=== PATIENT | male | born 1985 | race Two or more races ===

== ENCOUNTER 2021-08-25 12:49 | Inpatient (IN) | payer OTHER ==
[2021-08-25] MEDS ORDERED: ASPIRIN 81 MG PO STA (13:02)
[2021-08-25] MEDS ORDERED: NITROGLYCERIN SL TABS 0.4 MG TAB SUBLINGUAL STA ×3 (13:02)
--- NOTE | 2021-08-25 13:06 | ED ---
General Adult HPI - General Chief complaint: Chest Pain Stated complaint: Chest Pain Time Seen by Provider: 08/25/21 12:56 Source: patient, EMS, RN notes reviewed Mode of arrival: EMS Limitations: no limitations - History of Present Illness Initial comments: Patient is a pleasant 36-year-old male presenting to the emergency department complaints of chest discomfort. Onset of symptoms was 3 or 4 days ago. Symptoms were somewhat worse today. Patient as pressure in his chest rated 6 or 7/10. This is slightly improving at this time. Patient does have some associated sweating and dyspnea. Patient was also mildly nauseated. No history of similar symptoms previously. No leg pain or leg swelling. Patient was doing light to moderate exertion with onset of discomfort today. 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 - Related Data Home Medications Medication Instructions Recorded Confirmed No Known Home Medications 08/25/21 08/25/21 Allergies Allergy/AdvReac Type Severity Reaction Status Date / Time No Known Allergies Allergy Verified 08/25/21 14:10 Review of Systems ROS Statement: Those systems with pertinent positive or pertinent negative responses have been documented in the HPI. ROS Other: All systems not noted in ROS Statement are negative. Constitutional: Denies: fever Eyes: Denies: eye pain ENT: Denies: ear pain Respiratory: Reports: as per HPI. Denies: cough Cardiovascular: Reports: as per HPI, chest pain Gastrointestinal: Reports: nausea. Denies: abdominal pain Genitourinary: Denies: dysuria Musculoskeletal: Denies: back pain Skin: Denies: rash Neurological: Denies: weakness Past Medical History Past Medical History: No Reported History History of Any Multi-Drug Resistant Organisms: None Reported Additional Past Surgical History / Comment(s): Aortic Valve replacement Past Psychological History: No Psychological Hx Reported Smoking Status: Never smoker Past Alcohol Use History: Occasional Past Drug Use History: Marijuana General Exam Limitations: no limitations General appearance: alert, in no apparent distress Head exam: Present: normocephalic Eye exam: Present: normal appearance Neck exam: Present: normal inspection Respiratory exam: Present: normal lung sounds bilaterally. Absent: chest wall tenderness Cardiovascular Exam: Present: regular rate, normal rhythm, systolic murmur (Patient states normal) Expanded Peripheral pulses: 2+: Radial (R), Radial (L), Posterior Tibialis (R), Posterior Tibialis (L), Dorsalis Pedis (R), Dorsalis Pedis (L) GI/Abdominal exam: Present: soft. Absent: tenderness Extremities exam: Present: normal inspection. Absent: pedal edema, calf tenderness Neurological exam: Present: alert Psychiatric exam: Present: normal affect, normal mood Skin exam: Present: normal color Course Vital Signs 08/25/21 08/25/21 12:50 13:35 Temperature 97.5 F L Pulse Rate 86 84 Respiratory 18 18 Rate Blood Pressure 136/113 132/80 O2 Sat by Pulse 99 97 Oximetry EKG Findings - EKG Comments: EKG Findings:: Normal sinus rhythm with a rate of 89. PA 172. QRS 88. QT 346. QTc 420. Normal axis. Normal QRS. No acute ST change. Medical Decision Making - Medical Decision Making Patient has typical symptoms with borderline elevated troponin. Patient did improve with second nitroglycerin. Patient is felt to be at high risk. Patient and family updated on results and plan. Case was discussed with Dr. kurtz, who will admit covering hospital call. Heparin will be started. - Lab Data Result diagrams: 08/25/21 13:16 08/25/21 13:16 Lab Results 08/25/21 08/25/21 08/25/21 Range/Units 13:16 13:16 13:16 WBC 12.7 H (3.8-10.6) k/uL RBC 5.40 (4.30-5.90) m/uL Hgb 16.4 (13.0-17.5) gm/dL Hct 46.4 (39.0-53.0) % MCV 85.8 (80.0-100.0) fL MCH 30.4 (25.0-35.0) pg MCHC 35.4 (31.0-37.0) g/dL RDW 13.4 (11.5-15.5) % Plt Count 184 (150-450) k/uL MPV 9.8 Neutrophils % 87 % Lymphocytes % 7 % Monocytes % 5 % Eosinophils % 0 % Basophils % 0 % Neutrophils # 11.0 H (1.3-7.7) k/uL Lymphocytes # 0.9 L (1.0-4.8) k/uL Monocytes # 0.6 (0-1.0) k/uL Eosinophils # 0.0 (0-0.7) k/uL Basophils # 0.0 (0-0.2) k/uL PT 10.4 (9.0-12.0) sec INR 1.0 (<1.2) APTT 19.9 L (22.0-30.0) sec D-Dimer 0.18 (<0.60) mg/L FEU Sodium 139 (137-145) mmol/L Potassium 4.0 (3.5-5.1) mmol/L Chloride 102 (98-107) mmol/L Carbon Dioxide 24 (22-30) mmol/L Anion Gap 13 mmol/L BUN 27 H (9-20) mg/dL Creatinine 1.24 (0.66-1.25) mg/dL Est GFR (CKD-EPI)AfAm 87 (>60 ml/min/1.73 sqM) Est GFR (CKD-EPI)NonAf 75 (>60 ml/min/1.73 sqM) Glucose 97 (74-99) mg/dL Calcium 10.8 H (8.4-10.2) mg/dL Magnesium 2.3 (1.6-2.3) mg/dL Total Bilirubin 1.2 (0.2-1.3) mg/dL AST 30 (17-59) U/L ALT 20 (4-49) U/L Alkaline Phosphatase 99 (38-126) U/L Troponin I (0.000-0.034) ng/mL Total Protein 8.4 H (6.3-8.2) g/dL Albumin 5.1 H (3.5-5.0) g/dL 08/25/21 Range/Units 13:16 WBC (3.8-10.6) k/uL RBC (4.30-5.90) m/uL Hgb (13.0-17.5) gm/dL Hct (39.0-53.0) % MCV (80.0-100.0) fL MCH (25.0-35.0) pg MCHC (31.0-37.0) g/dL RDW (11.5-15.5) % Plt Count (150-450) k/uL MPV Neutrophils % % Lymphocytes % % Monocytes % % Eosinophils % % Basophils % % Neutrophils # (1.3-7.7) k/uL Lymphocytes # (1.0-4.8) k/uL Monocytes # (0-1.0) k/uL Eosinophils # (0-0.7) k/uL Basophils # (0-0.2) k/uL PT (9.0-12.0) sec INR (<1.2) APTT (22.0-30.0) sec D-Dimer (<0.60) mg/L FEU Sodium (137-145) mmol/L Potassium (3.5-5.1) mmol/L Chloride (98-107) mmol/L Carbon Dioxide (22-30) mmol/L Anion Gap mmol/L BUN (9-20) mg/dL Creatinine (0.66-1.25) mg/dL Est GFR (CKD-EPI)AfAm (>60 ml/min/1.73 sqM) Est GFR (CKD-EPI)NonAf (>60 ml/min/1.73 sqM) Glucose (74-99) mg/dL Calcium (8.4-10.2) mg/dL Magnesium (1.6-2.3) mg/dL Total Bilirubin (0.2-1.3) mg/dL AST (17-59) U/L ALT (4-49) U/L Alkaline Phosphatase (38-126) U/L Troponin I 0.048 H* (0.000-0.034) ng/mL Total Protein (6.3-8.2) g/dL Albumin (3.5-5.0) g/dL - Radiology Data Radiology results: image reviewed (Chest x-ray shows no acute process.) Critical Care Time Critical Care Time: Yes Total Critical Care Time: 32 Disposition Clinical Impression: Unstable angina pectoris Disposition: ADMITTED IP TO THIS HOSP Is patient prescribed a controlled substance at d/c from ED?: No Referrals: None,Stated [Primary Care Provider] - 1-2 days Decision Time: 14:58
[2021-08-25 13:41] LABS: Basophils % (A) 0 %; Eosinophils % (A) 0 %; HCT 46.4 % (39.0-53.0); HGB 16.4 gm/dL (13.0-17.5); Lymphocytes # (A) 0.9 k/uL (1.0-4.8); Lymphocytes % (A) 7 %; MCH 30.4 pg (25.0-35.0); MCHC 35.4 g/dL (31.0-37.0); MCV 85.8 fL (80.0-100.0); Mean Platelet Volume 9.8; Monocytes # (A) 0.6 k/uL (0-1.0); Monocytes % (A) 5 %; Neutrophils % (A) 87 %; Platelet Count 184 k/uL (150-450); RDW 13.4 % (11.5-15.5); WBC 12.7 k/uL (3.8-10.6)
--- NOTE | 2021-08-25 13:46 | XR ---
EXAMINATION TYPE: XR chest 2V DATE OF EXAM: 08/25/2021 COMPARISON: NONE HISTORY: Chest pain TECHNIQUE: Frontal and lateral views of the chest are obtained. FINDINGS: There is no focal air space opacity. No evidence for pneumothorax. No pleural effusion. The cardiac silhouette size is within normal limits. The osseous structures are grossly intact. IMPRESSION: 1. No acute cardiopulmonary process.
[2021-08-25 13:49] LABS: Albumin 5.1 g/dL (3.5-5.0); Calcium 10.8 mg/dL (8.4-10.2); Magnesium 2.3 mg/dL (1.6-2.3); Total Bilirubin 1.2 mg/dL (0.2-1.3); Total Protein 8.4 g/dL (6.3-8.2)
[2021-08-25 14:00] LABS: Prothrombin Time 10.4 sec (9.0-12.0)
[2021-08-25 14:07] LABS: Partial Thromboplastin Time 19.9 sec (22.0-30.0)
[2021-08-25] MEDS ORDERED: NITROGLYCERIN SL TABS 0.4 MG TAB SUBLINGUAL PRN (14:59)
[2021-08-25] MEDS ORDERED: HEPARIN SODIUM 1,000 UN/ML (10ML VL) IV ONE (14:59)
[2021-08-25] MEDS ORDERED: HEPARIN SOD,PORK IN 0.45% NACL 25,000 UNIT in 0.45% NACL 1 250ML.BAG IV SCH (15:00)
--- NOTE | 2021-08-25 15:14 | P.HPIM ---
History of Present Illness This is a pleasant 36 years old male with past medical history of Aortic Valve replacement on 02/2011. 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 He presents because of chest pain. He is been having chest pain for the last 3-4 days, like a weight on his chest, central nonradiating, but 7/10 in severity. Today he was also with difficulty getting of breath, sweating, no energy and shaking with some numbness in his left fingertip. No headache or dizziness, no diarrhea or urinary complaints Whenever he wipes there is some blood in his stool He denies smoking, alcohol or illicit drugs. Vitals are stable and patient afebrile Has mild leukocytosis of 12.7. Rest of CBC, BMP and liver enzymes are unremarkable related D-dimer is negative at 0.18 Troponin is elevated 0.048 Chest x-ray: No acute process EKG: Normal sinus rhythm at [address]-T changes and a QTC of 420 In the emergency room received aspirin 324 mg Review of Systems CONSTITUTIONAL: No fever, no malaise, no fatigue. HEENT: No recent visual problems or hearing problems. Denied any sore throat. CARDIOVASCULAR: No orthopnea, PND, no palpitations, no syncope. PULMONARY: No shortness of breath, no cough, no hemoptysis. GASTROINTESTINAL: No diarrhea, no nausea, no vomiting, no abdominal pain. Normoactive bowel sounds. NEUROLOGICAL: No headaches, no weakness, no numbness. HEMATOLOGICAL: Denies any bleeding or petechiae. GENITOURINARY: Denies any burning micturition, frequency, or urgency. MUSCULOSKELETAL/RHEUMATOLOGICAL: Denies any joint pain, swelling, or any muscle pain. ENDOCRINE: Denies any polyuria or polydipsia. Past Medical History Past Medical History: No Reported History History of Any Multi-Drug Resistant Organisms: None Reported Additional Past Surgical History / Comment(s): Aortic Valve replacement Past Psychological History: No Psychological Hx Reported Smoking Status: Never smoker Past Alcohol Use History: Occasional Past Drug Use History: Marijuana Medications and Allergies Home Medications Medication Instructions Recorded Confirmed Type No Known Home Medications 08/25/21 08/25/21 History Allergies Allergy/AdvReac Type Severity Reaction Status Date / Time No Known Allergies Allergy Verified 08/25/21 14:10 Physical Exam Vitals: Vital Signs Temp Pulse Resp BP Pulse Ox 08/25/21 13:35 84 18 132/80 97 08/25/21 12:50 97.5 F L 86 18 136/113 99 Intake and Output 08/24/21 08/25/21 08/25/21 22:59 06:59 14:59 Other: Weight 86.183 kg GENERAL: The patient is alert and oriented x3, not in any acute distress. Well developed, well nourished. HEENT: Pupils are round and equally reacting to light. EOMI. No scleral icterus. No conjunctival pallor. Normocephalic, atraumatic. No pharyngeal erythema. No thyromegaly. CARDIOVASCULAR: S1 and S2 present. No murmurs, rubs, or gallops. PULMONARY: Chest is clear to auscultation, no wheezing or crackles. ABDOMEN: Soft, nontender, nondistended, normoactive bowel sounds. No palpable organomegaly. MUSCULOSKELETAL: No joint swelling or deformity. EXTREMITIES: No cyanosis, clubbing, or pedal edema. NEUROLOGICAL: Gross neurological examination did not reveal any focal deficits. SKIN: No rashes. No petechiae Results CBC & Chem 7: 08/25/21 13:16 08/25/21 13:16 Labs: Abnormal Lab Results - Last 24 Hours (Table) 08/25/21 08/25/21 08/25/21 Range/Units 13:16 13:16 13:16 WBC 12.7 H (3.8-10.6) k/uL Neutrophils # 11.0 H (1.3-7.7) k/uL Lymphocytes # 0.9 L (1.0-4.8) k/uL APTT 19.9 L (22.0-30.0) sec BUN 27 H (9-20) mg/dL Calcium 10.8 H (8.4-10.2) mg/dL Total Protein 8.4 H (6.3-8.2) g/dL Albumin 5.1 H (3.5-5.0) g/dL Assessment and Plan Assessment: Chest Pain, rule out cardiac causes. Rule out non-STEMI History of Aortic Valve replacement about 10 years ago Plan: this is a pleasant 36 years old male who presents with chest pain. Continue with aspirin. Serial troponin and cardiology consult I discussed the case with the emergency room under going to start him on heparin drip Checked blood in his stool Labs and medication were reviewed.. Continue same treatment. Continue with symptomatic treatment. Resume home medication. Monitor lytes and vitals. DVT and GI prophylaxis. Further recommendations depends on the clinical course of the patient DVT prophylaxis:s heparin GI Prophylaxis: Ppi Prognosis is guarded
[2021-08-25] MEDS: METOPROLOL TARTRATE 12.5 MG TAB PO SCH (15:49)
[2021-08-25] MEDS: PANTOPRAZOLE 40 MG/10 ML VIAL IVP SCH (15:50)
[2021-08-25] MEDS: NITROGLYCERIN OINT 1 INCH/GM PACKET TOPICAL SCH (15:53)
[2021-08-25] MEDS ORDERED: HYDROcodone/APAP 5-325MG 1 EACH TAB PO PRN (21:28)
[2021-08-25] MEDS: ACETAMINOPHEN TAB 325 MG TAB PO PRN (21:48)
[2021-08-26] MEDS: METOPROLOL TARTRATE 12.5 MG TAB PO SCH (00:23)
[2021-08-26] MEDS: NITROGLYCERIN OINT 1 INCH/GM PACKET TOPICAL SCH ×6 (00:23→18:28)
[2021-08-26 03:04] LABS: African American GFR (CKD) >90 (>60 ml/min/1.73 sqM); Anion Gap 11 mmol/L; Blood Urea Nitrogen 28 mg/dL (9-20); Calcium 9.5 mg/dL (8.4-10.2); Carbon Dioxide 21 mmol/L (22-30); Chloride 104 mmol/L (98-107); Glucose 110 mg/dL (74-99); Non-African American GFR(CKD) >90 (>60 ml/min/1.73 sqM); Sodium 136 mmol/L (137-145)
[2021-08-26] MEDS ORDERED: HEPARIN SODIUM 1,000 UN/ML (10ML VL) IV PRN ×2 (03:28→10:39)
--- NOTE | 2021-08-26 08:00 | ECHOF ---
Referral Reason:ua, h/o av replacement MEASUREMENTS -------- HEIGHT: 177.8 cm WEIGHT: 86.2 kg BP: 134/103 RVIDd: 3.5 cm (< 3.3) IVSd: 1.6 cm (0.6 - 1.1) LVIDd: 3.3 cm (3.9 - 5.3) LVPWd: 1.3 cm (0.6 - 1.1) IVSs: 2.1 cm LVIDs: 2.1 cm LVPWs: 1.9 cm LAESV Index (A-L): 29.02 ml/m Ao Diam: 2.6 cm (2.0 - 3.7) AV Cusp: 3.4 cm (1.5 - 2.6) MV EXCURSION: 14.924 mm (> 18.000) MV EF SLOPE: 58 mm/s (70 - 150) EPSS: 0.5 cm MV E Vinay: 0.45 m/s MV DecT: 203 ms MV A Vinay: 0.45 m/s MV E/A Ratio: 0.99 AV maxP.09 mmHg AV meanP.95 mmHg RAP: 5.00 mmHg RVSP: 20.60 mmHg FINDINGS -------- Sinus rhythm. This was a technically difficult study with suboptimal views. The left ventricular size is normal. There is moderate concentric left ventricular hypertrophy. O verall left ventricular systolic function is normal with, an EF between 55 - 60 %. The diastolic fi lling pattern is normal for the age of the patient {E/E'}. The right ventricle is mildly enlarged. Normal LA size by volume 22+/-6 ml/m2. The right atrial size is normal. xx ml of Lumason was utilized for enhancement of images. Interatrial and interventricular septum intact. There is no evidence of aortic regurgitation. There is moderate aortic stenosis present. Peak/pj n gradient across the Aortic Valve is 32.09mmHg / 19.95mmHg. Normally functioning bioprosthetic mary ve. No mitral regurgitation. Mild tricuspid regurgitation present. There is no evidence of pulmonary hypertension. The right v entricular systolic pressure, as measured by Doppler, is 20.60mmHg. Trace/mild (physiologic) pulmonic regurgitation. The aortic root size is normal. IVC Not well visulized. There is no pericardial effusion. CONCLUSIONS -------- 1. The left ventricular size is normal. 2. There is moderate concentric left ventricular hypertrophy. 3. Overall left ventricular systolic function is normal with, an EF between 55 - 60 %. 4. The diastolic filling pattern is normal for the age of the patient {E/E'} 5. The right ventricle is mildly enlarged. 6. There is moderate aortic stenosis present. 7. Peak/mean gradient across the Aortic Valve is 32.09mmHg / 19.95mmHg. 8. Mild tricuspid regurgitation present. 9. Trace/mild (physiologic) pulmonic regurgitation. LITURGICAL MUSIC DIRECTOR: Eli Butler RDCS
[2021-08-26] MEDS: ATORVASTATIN 40 MG TAB PO SCH (08:26)
[2021-08-26] MEDS: PANTOPRAZOLE 40 MG/10 ML VIAL IVP SCH (08:26)
[2021-08-26] MEDS: ASPIRIN 81 MG PO SCH (08:26)
[2021-08-26] MEDS: METOPROLOL TARTRATE 25 MG TAB PO SCH ×2 (08:26→19:45)
[2021-08-26] MEDS: ACETAMINOPHEN TAB 325 MG TAB PO PRN (08:46)
[2021-08-26] MEDS ORDERED: ASPIRIN 325 MG TAB PO SCH (09:00)
--- NOTE | 2021-08-26 10:00 | CT ---
EXAMINATION TYPE: CT angio thor/abd pel aorta DATE OF EXAM: 08/26/2021 COMPARISON: None HISTORY: Unstable Angina CT DLP: 1277.4 mGycm CONTRAST: CTA thoracic and abdominal aorta with 3-D reconstruction is performed and with IV Contrast, patient i njected with 100 mL of Isovue 370. Contrast CTA of the thoracic and abdominal aorta was performed from the lung apex through the base of the pelvis. 3-D reconstruction imaging obtained at a separate workstation. CT Chest: THORACIC AORTA: Borderline aneurysmal dilatation of the ascending thoracic aorta at 4 cm AP dimension . No dissection or mediastinal hematoma. Mild atheromatous changes are seen. LUNGS: The lungs are clear and free of infiltrate or atelectasis. No pulmonary nodule or mass is det ected. No pleural effusion or CT evidence of interstitial lung disease. MEDIASTINUM: The heart is not enlarged. No evidence for mediastinal mass or adenopathy. HILAR STRUCTURES: No evidence for mass. No hilar adenopathy is appreciated. OTHER: No significant abnormality. CONTRAST CT ABDOMEN AND PELVIS ABDOMINAL AORTA: No evidence for abdominal aortic aneurysm. No dissection. Iliac vessels are symmet any and patent. Ectasia of the iliac vessels noted. LIVER/GB- No significant abnormality is seen. PANCREAS- No significant abnormality is seen. SPLEEN- No significant abnormality is seen. ADRENALS- No significant abnormality is seen. KIDNEYS/BLADDER- No significant abnormality is seen. BOWEL- No Significant abnormality GENITAL ORGANS: No gross abnormality seen. LYMPH NODES- No greater than 1cm abdominal or pelvic lymph nodes areappreciated. OSSEOUS STRUCTURES- No significant abnormality is seen. OTHER- No significant abnormality is seen. 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 The aorta is otherwise unremarkable . No evidence for dissection.
[2021-08-26 10:27] LABS: Basophils % (A) 0 %; Eosinophils # (A) 0.1 k/uL (0-0.7); Eosinophils % (A) 1 %; HCT 43.3 % (39.0-53.0); HGB 14.5 gm/dL (13.0-17.5); Lymphocytes # (A) 1.4 k/uL (1.0-4.8); Lymphocytes % (A) 16 %; MCH 29.8 pg (25.0-35.0); MCHC 33.6 g/dL (31.0-37.0); MCV 88.8 fL (80.0-100.0); Mean Platelet Volume 10.3; Monocytes # (A) 0.4 k/uL (0-1.0); Monocytes % (A) 5 %; Neutrophils # (A) 6.8 k/uL (1.3-7.7); Neutrophils % (A) 77 %; Platelet Count 156 k/uL (150-450); RBC 4.87 m/uL (4.30-5.90); RDW 13.1 % (11.5-15.5); WBC 8.9 k/uL (3.8-10.6)
--- NOTE | 2021-08-26 10:39 | P.PN ---
Subjective This is a pleasant 36 years old male with past medical history of Aortic Valve replacement on 02/2011. 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 He presents because of chest pain. He is been having chest pain for the last 3-4 days, like a weight on his chest, central nonradiating, but 7/10 in severity. Today he was also with difficulty getting of breath, sweating, no energy and shaking with some numbness in his left fingertip. No headache or dizziness, no diarrhea or urinary complaints Whenever he wipes there is some blood in his stool He denies smoking, alcohol or illicit drugs. Vitals are stable and patient afebrile Has mild leukocytosis of 12.7. Rest of CBC, BMP and liver enzymes are unre markable related D-dimer is negative at 0.18 Troponin is elevated 0.048 Chest x-ray: No acute process EKG: Normal sinus rhythm at [address]-T changes and a QTC of 420 In the emergency room received aspirin 324 mg 08/26/2021 Patient chest pain better today. No dyspnea. No other complaints no dizziness. Vitals and labs are reviewed and stable. CBC still pending [employer] evaluated the patient and suspected aortic aneurysm, however thoracic aorta angiogram showing mild aortic root dilatation without dissection. An ejection fraction of 55-60% with moderate aortic stenosis [employer] recommended to continue with aspirin 81 mg and Lipitor, increase metoprolol 25 mg, nitroglycerin half inch on treatment Objective - Vital Signs Vital signs: Vital Signs Temp 97.7 F 08/26/21 04:00 Pulse 70 08/26/21 04:00 Resp 16 08/26/21 04:00 BP 127/84 08/26/21 04:00 Pulse Ox 97 08/26/21 04:00 Intake & Output 08/25/21 08/26/21 08/26/21 18:59 06:59 18:59 Intake Total 114.5 0 Balance 114.5 0 Weight 86.183 kg 90.3 kg Intake: Intake, IV Titration 114.5 Amount Heparin Sod,Pork in 0.45% 114.5 NaCl 25,000 unit In 0.45 % NaCl 1 250ml.bag @ 11. 603 UNITS/KG/HR 10 mls/hr IV .Q24H [facility] Rx#: [id number] Oral 0 - Labs CBC & Chem 7: 08/25/21 13:16 08/26/21 02:03 Labs: Abnormal Lab Results - Last 24 Hours (Table) 08/25/21 08/25/21 08/25/21 Range/Units 13:16 13:16 13:16 WBC 12.7 H (3.8-10.6) k/uL Neutrophils # 11.0 H (1.3-7.7) k/uL Lymphocytes # 0.9 L (1.0-4.8) k/uL APTT 19.9 L (22.0-30.0) sec Sodium (137-145) mmol/L Carbon Dioxide (22-30) mmol/L BUN 27 H (9-20) mg/dL Glucose (74-99) mg/dL Calcium 10.8 H (8.4-10.2) mg/dL Troponin I (0.000-0.034) ng/mL Total Protein 8.4 H (6.3-8.2) g/dL Albumin 5.1 H (3.5-5.0) g/dL 08/25/21 08/25/21 08/25/21 Range/Units 13:16 16:20 21:30 WBC (3.8-10.6) k/uL Neutrophils # (1.3-7.7) k/uL Lymphocytes # (1.0-4.8) k/uL APTT (22.0-30.0) sec Sodium (137-145) mmol/L Carbon Dioxide (22-30) mmol/L BUN (9-20) mg/dL Glucose (74-99) mg/dL Calcium (8.4-10.2) mg/dL Troponin I 0.048 H* 0.071 H* 0.053 H* (0.000-0.034) ng/mL Total Protein (6.3-8.2) g/dL Albumin (3.5-5.0) g/dL 08/25/21 08/26/21 08/26/21 Range/Units 21:30 02:03 02:03 WBC (3.8-10.6) k/uL Neutrophils # (1.3-7.7) k/uL Lymphocytes # (1.0-4.8) k/uL APTT 33.9 H (22.0-30.0) sec Sodium 136 L (137-145) mmol/L Carbon Dioxide 21 L (22-30) mmol/L BUN 28 H (9-20) mg/dL Glucose 110 H (74-99) mg/dL Calcium (8.4-10.2) mg/dL Troponin I 0.050 H* (0.000-0.034) ng/mL Total Protein (6.3-8.2) g/dL Albumin (3.5-5.0) g/dL 08/26/21 Range/Units 02:03 WBC (3.8-10.6) k/uL Neutrophils # (1.3-7.7) k/uL Lymphocytes # (1.0-4.8) k/uL APTT 31.4 H (22.0-30.0) sec Sodium (137-145) mmol/L Carbon Dioxide (22-30) mmol/L BUN (9-20) mg/dL Glucose (74-99) mg/dL Calcium (8.4-10.2) mg/dL Troponin I (0.000-0.034) ng/mL Total Protein (6.3-8.2) g/dL Albumin (3.5-5.0) g/dL Assessment and Plan Assessment: Chest Pain, rule out cardiac causes. moderate aortic stenosis History of Aortic Valve replacement about 10 years ago Plan: this is a pleasant 36 years old male who presents with chest pain. Continue with aspirin. Continue with metoprolol and Lipitor Cartilage team on the case Checked blood in his stool Labs and medication were reviewed.. Continue same treatment. Continue with symptomatic treatment. Resume home medication. Monitor lytes and vitals. DVT and GI prophylaxis. Further recommendations depends on the clinical course of the patient DVT prophylaxis:s heparin GI Prophylaxis: Ppi Prognosis is guarded
[2021-08-26] MEDS ORDERED: ALPRAZolam 0.5 MG TAB PO PRN (10:54)
[2021-08-26] MEDS ORDERED: ALPRAZolam 0.25 MG TAB PO PRN (10:54)
[2021-08-26] MEDS: HEPARIN SOD,PORK IN 0.45% NACL 25,000 UNIT in 0.45% NACL 1 250ML.BAG IV SCH (11:03)
[2021-08-26] MEDS: SODIUM CHLORIDE 0.9% 1,000 ML IV SCH (11:04)
--- NOTE | 2021-08-26 13:09 | CONS ---
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 He came into the hospital mainly with complaints of chest discomfort for the last 3-4 days. Almost 5 days ago he started feeling nondescript chest tightness and pressure, and the symptoms seemed to have gotten worse, so he came into the hospital. He apparently felt his heart racing and also felt a little nauseated and very warm when this episode occurred while he was at work. At the time of my evaluation, he is asymptomatic, resting comfortably. He has interesting background history. 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 Etiology is unclear. Then he went on to have aortic valve replacement performed in [place] with a tissue valve. Since then he has done well, has not had any followup with Cardiology recently. His father also has a bicuspid aortic valve and apparently at about 66 years of age. At the time of my evaluation, he is resting comfortably, has no further pain. His troponins are marginally elevated. He is not a smoker. He does use marijuana. Drinks alcohol occasionally. PAST MEDICAL HISTORY: Bicuspid aortic valve with endocarditis and replacement 11 years ago with a tissue valve. He has no hypertension, diabetes, myocardial infarction or CVA. MEDICATIONS: He takes aspirin occasionally. No regular medications. ALLERGIES: NONE. PHYSICAL EXAMINATION: On examination, blood pressure is 124/70. Pulse rate is 78 per minute, regular. HEENT unremarkable. Fundus was not examined by me. Neck is supple. There is no JVD. I do not hear a carotid bruit. HEART exam reveals S1, S2 with an ejection systolic murmur at the base, preserved second heart sound. There is also a soft systolic murmur audible at the apex as well. Lungs are clear. ABDOMEN: Soft, nontender. Bowel sounds are normal. There is no organomegaly. Lower extremities reveal palpable pulses. No edema. Central nervous system is normal. EKG revealed a sinus mechanism with LVH by voltage criteria. No acute changes. LABORATORY DATA: Laboratory data suggest that troponin is 0.07, 0.05 and 0.05. IMPRESSION: 1. Chest pain, atypical, with equivocal troponin elevation in a patient with bicuspid aortic valve and valve replacement for endocarditis. 2. Rule out any ascending aortic dissection or aneurysm. 3. Cannot exclude coronary artery disease; seems less likely. RECOMMENDATIONS: I am recommending that we hold IV heparin, obtain a CT angio of the chest to look for any ascending aortic pathology in the form of dissection or aneurysm, and if this is ruled out, we will resume the heparin and subsequent cardiac cath tomorrow can be considered after hydrating him. I discussed my thoughts in detail with the patient. He does not have any symptoms at this time, is resting comfortably, but his symptoms for the last 3-5 days have been persistent. Troponin is equivocal. I will obtain additional troponin, hydrate him and await the results of CT angiogram. Discussed my thoughts in detail with the patient. BP control is good. MMODL / IJN: [id number] /
[2021-08-26 21:48] LABS: Chol/HDL Ratio 4.82 Ratio; LDL Cholesterol,Calculated 132.1 mg/dL (0.0-131.0)
[2021-08-27] MEDS: SODIUM CHLORIDE 0.9% 1,000 ML IV SCH ×2 (00:13→11:45)
[2021-08-27] MEDS: NITROGLYCERIN OINT 1 INCH/GM PACKET TOPICAL SCH ×3 (00:13→11:45)
[2021-08-27] MEDS: SODIUM CHLORIDE 0.9% 1,000 ML in EMPTY BAG 1 BAG IV SCH ×3 (00:14→22:35)
[2021-08-27] MEDS: HEPARIN SOD,PORK IN 0.45% NACL 25,000 UNIT in 0.45% NACL 1 250ML.BAG IV SCH (04:35)
[2021-08-27] MEDS ORDERED: ASPIRIN 325 MG TAB PO ONE (06:00)
[2021-08-27] MEDS ORDERED: ATORVASTATIN 80 MG TAB PO ONE (06:00)
[2021-08-27] MEDS: METOPROLOL TARTRATE 25 MG TAB PO SCH ×2 (06:22→19:56)
[2021-08-27] MEDS: PANTOPRAZOLE 40 MG/10 ML VIAL IVP SCH (06:22)
[2021-08-27] MEDS ORDERED: HEPARIN SODIUM,PORCINE 10,000 UNIT in SODIUM CHLORIDE 0.9% 1,000 ML IRRIGATION PRN (07:00)
[2021-08-27] MEDS ORDERED: HEPARIN SODIUM,PORCINE 2,500 UNIT in SODIUM CHLORIDE 0.9% 250 ML IRRIGATION PRN (07:00)
[2021-08-27] MEDS: ASPIRIN 81 MG PO SCH (07:36)
[2021-08-27] MEDS: ATORVASTATIN 40 MG TAB PO SCH (07:37)
[2021-08-27 07:59] LABS: Basophils % (A) 1 %; Eosinophils # (A) 0.2 k/uL (0-0.7); Eosinophils % (A) 2 %; HCT 40.7 % (39.0-53.0); HGB 13.5 gm/dL (13.0-17.5); Lymphocytes # (A) 1.5 k/uL (1.0-4.8); Lymphocytes % (A) 20 %; MCH 29.5 pg (25.0-35.0); MCHC 33.1 g/dL (31.0-37.0); MCV 89.2 fL (80.0-100.0); Mean Platelet Volume 10.1; Monocytes # (A) 0.4 k/uL (0-1.0); Monocytes % (A) 6 %; Neutrophils # (A) 5.2 k/uL (1.3-7.7); Neutrophils % (A) 70 %; Platelet Count 145 k/uL (150-450); RBC 4.56 m/uL (4.30-5.90); RDW 12.9 % (11.5-15.5); WBC 7.4 k/uL (3.8-10.6)
[2021-08-27 08:13] LABS: INR 0.9 (<1.2); Partial Thromboplastin Time 36.5 sec (22.0-30.0); Prothrombin Time 10.1 sec (9.0-12.0)
[2021-08-27 09:25] LABS: African American GFR (CKD) >90 (>60 ml/min/1.73 sqM); Anion Gap 7 mmol/L; Blood Urea Nitrogen 24 mg/dL (9-20); Calcium 9.2 mg/dL (8.4-10.2); Carbon Dioxide 23 mmol/L (22-30); Chloride 106 mmol/L (98-107); Glucose 103 mg/dL (74-99); Non-African American GFR(CKD) >90 (>60 ml/min/1.73 sqM); Potassium 4.1 mmol/L (3.5-5.1); Sodium 136 mmol/L (137-145)
[2021-08-27] MEDS ORDERED: LIDOCAINE 1% INJ 10MG/ML (20 ML MDV) ONE (11:48)
[2021-08-27] MEDS ORDERED: VERAPAMIL 2.5 MG/ML 2 ML AMP ONE (11:48)
[2021-08-27] MEDS ORDERED: IV FLUID CONTINUATION 700 ML IV ONE (11:52)
[2021-08-27] MEDS ORDERED: LIDOCAINE 1% INJ 10MG/ML (20 ML MDV) SQ ONE (11:58)
[2021-08-27] MEDS ORDERED: MIDAZOLAM 2 MG/2 ML VIAL IV ONE (12:00)
[2021-08-27] MEDS ORDERED: VERAPAMIL SYRINGE (5 MG/10 ML) INTRAARTER ONE (12:01)
[2021-08-27] MEDS ORDERED: IOPAMIDOL-370 100ML BTL INJ ONE (12:13)
--- NOTE | 2021-08-27 13:05 | AN ---
ANGIOGRAPHY REPORT DATE OF SERVICE: 08/27/2021. PROCEDURE: Coronary angiography. PERFORMED BY: Dr. Vijaya Goncalves. SEDATION: Moderate conscious sedation time was 15 minutes. Patient was administered Versed. Oxygen saturation, hemodynamics and EKG were monitored closely. CLINICAL INFORMATION: Mr. 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 He came into the hospital with chest pain, had a mild troponin elevation. His pain was going on for at least 4-5 weeks. 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 I advised a CT angiogram that was performed yesterday and there was no evidence of any aortic pathology. Specifically, no evidence of a dissection or aneurysm. Mild dilatation of the ascending aorta was noted. I then call the radiologist today and there was no evidence of any pulmonary embolism either. Because of the patient's presentation and unremarkable CT angiogram, I recommended coronary angiography after due discussion regarding risks, benefits, and options. PROCEDURE NOTE: Under local anesthesia and strict aseptic precautions, a 6-Nigerien introducer was placed in the right radial artery. Using a JL3.5 and JR4 catheters, I performed coronary angiography. I did not cross the aortic valve. Did not check LV pressures. Following the procedure, the sheath was taken out and TR band applied as per protocol with saturation of the fingers of the right hand of 95%. Results were then discussed with the patient as well as with his aunt who was the only relative available. CORONARY ANGIOGRAPHIC FINDINGS: RIGHT CORONARY ARTERY: Technically this is a dominant vessel, large in caliber. No significant disease. Distally bifurcates into PDA and PLV, both of which supply a fair amount of myocardium. No significant disease in the dominant RCA. LEFT MAIN CORONARY ARTERY: Short patent vessel. No significant disease. Bifurcates into LAD and circumflex. LEFT ANTERIOR DESCENDING CORONARY ARTERY: Good caliber vessel extends along the anterior wall, gives off septal and diagonal branch. Diagonal branches runs all the way to the apex, has no significant disease. Flow is somewhat sluggish. LEFT POSTERIOR CIRCUMFLEX CORONARY ARTERY: Technically nondominant vessel, gives off a good-sized obtuse marginal and continues distally as a posterolateral branch. No significant disease in the nondominant circumflex which is a large caliber large distribution vessel. Left ventriculogram was not performed and LV was not crossed. FINAL IMPRESSION: This patient has a right dominant system, no significant obstructive CAD. LV pressures were not checked. RECOMMENDATIONS: Findings were discussed with the patient. No intervention from a coronary disease standpoint. We will consider this as a myocardial infarction without obstructive CAD. We will follow him and discharge him tomorrow if he remains stable. No intervention at this time. Will do risk factor modification. ZANDER / NORAN: [id number] /
--- NOTE | 2021-08-27 13:32 | PN ---
PROGRESS NOTE This gentleman came into the hospital with chest pain had, equivocal troponin elevation. CT angio was negative for any aortic pathology. There was no significant evidence of pulmonary embolism. Cardiac cath will be performed today. Rationale, risks, benefits and options were explained. Patient understands and wishes to proceed with the procedure. Physical exam revealed vital signs were stable. There is no JVD or carotid bruit. S1, S2 is audible with an ejection systolic murmur at the base. Second heart sound is preserved. Lungs are clear. Abdomen is soft, nontender. Lower extremities reveal normal pulses. No edema. Central nervous system is normal. Cardiac cath today. MMODL / IJN: [id number] /
--- NOTE | 2021-08-27 16:38 | P.PN ---
Subjective Progress Note Date: 08/27/21 Principal diagnosis: Chest Pain 36 years old male with past medical history of Aortic Valve replacement on 02/2011. 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 He presents because of chest pain. He is been having chest pain for the last 3-4 days, like a weight on his chest, central nonradiating, but 7/10 in severity. Today he was also with difficulty getting of breath, sweating, no energy and shaking with some numbness in his left fingertip. No headache or dizziness, no diarrhea or urinary complaints Whenever he wipes there is some blood in his stool Has mild leukocytosis of 12.7. Rest of CBC, BMP and liver enzymes are unrem arkable related D-dimer is negative at 0.18 Troponin is elevated 0.048 Chest x-ray: No acute process EKG: Normal sinus rhythm at [address]-T changes and a QTC of 420 In the emergency room received aspirin 324 mg Objective - Vital Signs Vital signs: Vital Signs Temp 97.8 F 08/27/21 08:00 Pulse 56 L 08/27/21 08:00 Resp 18 08/27/21 08:00 BP 122/82 08/27/21 08:00 Pulse Ox 97 08/27/21 08:00 Intake & Output 08/26/21 08/27/21 08/27/21 18:59 06:59 18:59 Intake Total 98.023 151.977 Balance 98.023 151.977 Weight 89.9 kg Intake: Intake, IV Titration 98.023 151.977 Amount Heparin Sod,Pork in 0.45% 98.023 151.977 NaCl 25,000 unit In 0.45 % NaCl 1 250ml.bag @ 14. 603 UNITS/KG/HR 13.187 mls/hr IV .[id number] [facility] Rx #:[id number] Oral 0 Other: # Voids 1 1 - Exam GENERAL: The patient is alert and oriented x3, not in any acute distress. Well developed, well nourished. HEENT: Pupils are round and equally reacting to light. EOMI. No scleral icterus. No conjunctival pallor. Normocephalic, atraumatic. No pharyngeal erythema. No thyromegaly. CARDIOVASCULAR: S1 and S2 present. No murmurs, rubs, or gallops. PULMONARY: Chest is clear to auscultation, no wheezing or crackles. ABDOMEN: Soft, nontender, nondistended, normoactive bowel sounds. No palpable organomegaly. MUSCULOSKELETAL: No joint swelling or deformity. EXTREMITIES: No cyanosis, clubbing, or pedal edema. NEUROLOGICAL: Gross neurological examination did not reveal any focal deficits. SKIN: No rashes. No petechiae - Labs CBC & Chem 7: 08/27/21 07:12 08/27/21 07:12 Labs: Abnormal Lab Results - Last 24 Hours (Table) 08/26/21 08/26/21 08/27/21 Range/Units 02:03 16:54 00:02 Plt Count (150-450) k/uL APTT 32.8 H 46.8 H (22.0-30.0) sec Sodium (137-145) mmol/L BUN (9-20) mg/dL Glucose (74-99) mg/dL Triglycerides 156.00 H (0.00-149.00) mg/dL Cholesterol 206.00 H (0.00-200.00) mg/dL LDL Cholesterol, Calc 132.1 H (0.0-131.0) mg/dL 08/27/21 08/27/21 08/27/21 Range/Units 07:12 07:12 07:12 Plt Count 145 L (150-450) k/uL APTT 36.5 H (22.0-30.0) sec Sodium 136 L (137-145) mmol/L BUN 24 H (9-20) mg/dL Glucose 103 H (74-99) mg/dL Triglycerides (0.00-149.00) mg/dL Cholesterol (0.00-200.00) mg/dL LDL Cholesterol, Calc (0.0-131.0) mg/dL Assessment and Plan Assessment: Chest Pain, rule out cardiac causes. Rule out non-STEMI History of Aortic Valve replacement about 10 years ago Plan: Continue with aspirin. Serial troponin and cardiology consult I discussed the case with the emergency room under going to start him on heparin drip Checked blood in his stool Labs and medication were reviewed.. Continue same treatment. Continue with symptomatic treatment. Resume home medication. Monitor lytes and vitals. DVT and GI prophylaxis. Further recommendations depends on the clinical course of the patient DVT prophylaxis:s heparin GI Prophylaxis: Ppi
[2021-08-27] MEDS: HEPARIN SODIUM,PORCINE/PF 5,000 UNIT/0.5 ML SYRINGE SQ SCH (19:56)
[2021-08-28] MEDS: SODIUM CHLORIDE 0.9% 1,000 ML IV SCH (04:44)
[2021-08-28] MEDS ORDERED: PANTOPRAZOLE 40 MG TABLET PO SCH (07:30)
[2021-08-28] MEDS: ASPIRIN 81 MG PO SCH (07:53)
[2021-08-28] MEDS: METOPROLOL TARTRATE 25 MG TAB PO SCH (07:54)
[2021-08-28] MEDS: ATORVASTATIN 40 MG TAB PO SCH (07:54)
[2021-08-28] MEDS: HEPARIN SODIUM,PORCINE/PF 5,000 UNIT/0.5 ML SYRINGE SQ SCH (07:55)
[2021-08-28 09:26] LABS: African American GFR (CKD) >90 (>60 ml/min/1.73 sqM); Anion Gap 10 mmol/L; Blood Urea Nitrogen 16 mg/dL (9-20); Calcium 9.7 mg/dL (8.4-10.2); Carbon Dioxide 25 mmol/L (22-30); Chloride 105 mmol/L (98-107); Glucose 113 mg/dL (74-99); Non-African American GFR(CKD) >90 (>60 ml/min/1.73 sqM); Potassium 4.2 mmol/L (3.5-5.1); Sodium 140 mmol/L (137-145)
[2021-08-28] MEDS: SODIUM CHLORIDE 0.9% 1,000 ML in EMPTY BAG 1 BAG IV SCH (09:56)
--- NOTE | 2021-08-28 11:01 | PN ---
PROGRESS NOTE This gentleman underwent a cardiac cath yesterday which revealed no significant obstructive CAD. He has a bicuspid aortic valve and endocarditis, underwent aortic valve replacement [address] angio was also negative. Vitals are stable. No symptoms of chest pain, shortness of breath or palpitations. Troponin was elevated borderline. Cath was negative. Plan to discharge him today. No work until I see him on August 31. Vitals are stable. No JVD. S1, S2 heard normally. Lungs are clear. Abdomen and lower extremity exam unchanged. Right radial cath site is clean and dry with a good pulse. Patient can be discharged today. MMODL / IJN: [id number] /
[2021-08-28 12:03] VITALS: BP 122/90; PULSE 53; RESP 16; TEMP 98
--- NOTE | 2021-10-05 23:51 | P.DS ---
Providers Date of admission: 08/25/21 14:59 Expected date of discharge: 08/28/21 Attending physician: Devendra Roberto MD Consults: 08/25/21 13:50 Consult Physician Urgent Consulting Provider: Vivi Goncalves Consult Reason/Comments: chest pain Do you want consulting provider notified?: Yes Primary care physician: Stated None Hospital Course: 36 years old male with past medical history of Aortic Valve replacement on 02/2011. Patient has no medical insurance and he does not follow up with PCP or compensator. He presents because of chest pain. He is been having chest pain for the last 3-4 days, like a weight on his chest, central nonradiating, but 7/10 in severity. Today he was also with difficulty getting of breath, sweating, no energy and shaking with some numbness in his left fingertip. No headache or dizziness, no diarrhea or urinary complaints Whenever he wipes there is some blood in his stool He denies smoking, alcohol or illicit drugs. Vitals are stable and patient afebrile Has mild leukocytosis of 12.7. Rest of CBC, BMP and liver enzymes are unremarkable related D-dimer is negative at 0.18 Troponin is elevated 0.048 Chest x-ray: No acute process EKG: Normal sinus rhythm at [address]-T changes and a QTC of 420 In the emergency room received aspirin 324 mg 08/26/2021 Patient chest pain better today. No dyspnea. No other complaints no dizziness. Vitals and labs are reviewed and stable. CBC still pending Solder Sprayer evaluated the patient and suspected aortic aneurysm, however thoracic aorta angiogram showing mild aortic root dilatation without dissection. An ejection fraction of 55-60% with moderate aortic stenosis Solder Sprayer recommended to continue with aspirin 81 mg and Lipitor, increase metoprolol 25 mg, nitroglycerin half inch on treatment patient underwent cardiac cath with did not reveal any significant CAD; patient was al'ed in a stable condition to follow up with primary compensator Plan - Discharge Summary Discharge Rx Participant: No New Discharge Prescriptions: New Aspirin 81 mg PO DAILY tab Metoprolol Tartrate [Lopressor] 25 mg PO BID #60 tab Atorvastatin [Lipitor] 40 mg PO DAILY #30 tab Discharge Medication List Aspirin 81 mg PO DAILY tab 08/28/21 [Rx] Atorvastatin [Lipitor] 40 mg PO DAILY #30 tab 08/28/21 [Rx] Metoprolol Tartrate [Lopressor] 25 mg PO BID #60 tab 08/28/21 [Rx] Follow up Appointment(s)/Referral(s): Vivi Goncalves MD [STAFF PHYSICIAN] - 08/31/21 9:30 am None,Stated [Primary Care Provider] - 1-2 days Patient Instructions/Handouts: Heart Catheterization (DC) Discharge Disposition: HOME SELF-CARE
--- NOTE | 2021-10-06 11:39 | CDI ---
Documentation Clarification Form Date: 10/06/2021 11:31:59 AM From: Rick Carrion Admit Date: 08/25/2021 02:59:00 PM Patient Name: Guillermo Zaldivar Visit Number: [id number] Discharge Date: 08/28/2021 03:44:00 PM ATTENTION: The Clinical Documentation Specialists (CDI) and [facility] Coding Staff appreciate your assistance in clarifying documentation. Please respond to the clarification below the line at the bottom and electronically sign. The CDI & [facility] Coding staff will review the response and follow-up if needed. Please note: Queries are made part of the Legal Health Record. If you have any questions, please contact the author of this message via ITS. Dr. Papi Desouza Your patient has the documented symptom of chest pain per your discharge summary. Additional clarification regarding the etiology/cause of this symptom is requested. Cath report states will consider this as an RI without CAD. Patient C/O: History/Risk factors: chest pain Clinical Indicators: mildly elevated troponin Labs: EF 53-60% Treatment: coronary artery angiography-negative for CAD Consults: Please provide additional clarification regarding the etiology/cause of the chest pain. [ ] Chest pain due to Aortic stenosis [ ] Chest pain due to CAD with angina (specify vessel and type of angina if known) [ ] Chest pain due to cardiac arrhythmias (specify type if known) [ ] Chest pain due to chest wall pain [ ] Chest pain due to Costochondritis [ ] Chest pain due to GERD [ ] Chest pain due to pleurisy [ ] Chest pain due to psychogenic chest pain [ ] Chest pain due to unstable angina [ ] Chest pain due to other condition, please specify [ ] Unable to determine [ ] NSTEMI Unable to determine MTDD
== END 2021-08-28 15:44 | disposition home or self-care (01) | DRG 287 ==
LOC: EC 12:49 → 3SCARD 14:59
PROVIDERS: ADMIT Internal Medicine; ATTEND Internal Medicine
PROC: B2111ZZ Fluoroscopy of Multiple Coronary Arteries using Low Osmolar Contrast (ICD-10-PCS; principal; 2021-08-27 12:00)
DX: R07.9 Chest pain, unspecified (principal); Q23.1 Congenital insufficiency of aortic valve; Z95.2 Presence of prosthetic heart valve; R77.8 Other specified abnormalities of plasma proteins; Z20.822 Contact with and (suspected) exposure to COVID-19
CPT/HCPCS: 36415; 71046; 71275; 74174; 80048; 80053; 80061; 83735; 84484; 85025; 85379; 85610; 85730; 87635; 93005; 93306; 93454; 99291